=== PATIENT | female | born 1990 | race Caucasian/White ===

== ENCOUNTER 2019-05-25 10:36 | Outpatient (CLI) | payer BC, OTHER ==
[2019-05-25 11:14] VITALS: BP 124/71; PULSE 79; RESP 18; TEMP 98.3
--- NOTE | 2019-05-26 15:38 | P.MSEPDOC ---
Presenting Problems - Arrival Data Date of Arrival on Unit: 05/25/19 Time of Arrival on Unit: 10:40 Mode of Transport: Ambulatory - Complaint OB-Reason for Admission/Chief Complaint: Possible Onset of Labor Comment: admitted with groin pains and low back (sacral) area. denies bleeding or rupture or leaking of fluid Medical History - Information : 1 Para: 0 Term: 0 : 0 Abortions: Spontaneous or Elective: 0 Number of Living Children: 0 - Gestational Age Gestational Age by JUN (wks/days): 38 Weeks and 5 Days Review of Systems - Review of Systems Constitutional: No problems Breast: No problems ENT: No problems Cardiovascular: No problems Respiratory: No problems Gastrointestinal: No problems Genitourinary: No problems Musculoskeletal: No problems Neurological: No problems Skin: No problems Vital Signs - Temperature Temperature: 98.3 F Temperature Source: Oral - Pulse Right Brachial Pulse Rate: 79 Pulse Assessment Method: Automatic Cuff - Respirations Respiratory Rate: 18 Oxygen Delivery Method: Room Air O2 Sat by Pulse Oximetry: 97 - Blood Pressure Right Arm Blood Pressure: 124/71 Blood Pressure Mean: 88 Blood Pressure Source: Automatic Cuff Medical Screen Scoring (Pre) - Cervical Exam Dilation: 1-3 cm = 1 Effacement: More than 50% = 2 Membranes: Intact - Uterine Contractions Frequency: N/A Duration: N/A Intensity: N/A - Maternal Vital Signs Maternal Temperature: N/A Maternal Blood Pressure: N/A Signs of Preeclampsia: N/A Maternal Respirations: N/A - Maternal Trauma Maternal Trauma: N/A - Assessment - Baby A Baseline FHR: 125 Heart Rate - NICHD Category: Category I (Normal) = 0 NST: Reactive Position: N/A - Total Score - Baby A Total Score - Baby A: 3 - Total Score - Baby B Total Score - Baby B: 3 - Total Score - Baby C Total Score - Baby C: 3 - Level of Risk - Baby A Level of Risk - Baby A: Low (0-5) - Level of Risk - Baby B Level of Risk - Baby B: Low (0-5) - Level of Risk - Baby C Level of Risk - Baby C: Low (0-5) Physician Notification (Pre) - Physician Notified Physician Notified Date: 05/25/19 Physician Notified Time: 11:25 Spoke With: demetrio New Order Received: Yes - Notification Comment Comment: discharge. increase fluid intake. keep 05/28 appt as scheduled Disposition - Disposition OB Disposition: Discharge to home Discharge Date: 05/25/19 Discharge Time: 11:35 I agree with the RN Medical Screening Exam: Yes Risk & Benefit of care provided described in d/c instruction: Yes Diagnosis: FALSE LABOR AT OR AFTER 37 COMPLETED WEEKS OF GESTATION
== END 2019-05-25 11:35 | disposition home or self-care (01) ==
LOC: FBPOP 10:36
PROVIDERS: ATTEND Obstetrics & Gynecology
DX: O47.1 False labor at or after 37 completed weeks of gestation (principal); Z3A.38 38 weeks gestation of pregnancy
CPT/HCPCS: 59025; 99213

== ENCOUNTER 2019-05-26 09:41 | Outpatient (CLI) | payer BC, OTHER ==
[2019-05-26 17:14] VITALS: BP 134/84; PULSE 88; RESP 18; TEMP 98.5
--- NOTE | 2019-05-28 04:58 | P.MSEPDOC ---
Presenting Problems - Arrival Data Date of Arrival on Unit: 05/26/19 Time of Arrival on Unit: 09:20 Mode of Transport: Ambulatory - Complaint OB-Reason for Admission/Chief Complaint: Possible Onset of Labor Medical History - Information : 1 Para: 0 Term: 0 : 0 Abortions: Spontaneous or Elective: 0 Number of Living Children: 0 - Gestational Age Gestational Age by JUN (wks/days): 38 Weeks and 6 Days Review of Systems - Review of Systems Constitutional: No problems Breast: No problems ENT: No problems Cardiovascular: No problems Respiratory: No problems Gastrointestinal: No problems Genitourinary: No problems Musculoskeletal: No problems Neurological: No problems Skin: No problems Vital Signs - Temperature Temperature: 98.5 F Temperature Source: Oral - Pulse Right Brachial Pulse Rate: 88 Pulse Assessment Method: Automatic Cuff - Respirations Respiratory Rate: 18 Oxygen Delivery Method: Room Air O2 Sat by Pulse Oximetry: 97 - Blood Pressure Right Arm Blood Pressure: 134/84 Blood Pressure Mean: 100 Blood Pressure Source: Automatic Cuff Medical Screen Scoring (Pre) - Cervical Exam Dilation: 1-3 cm = 1 Membranes: Intact - Uterine Contractions Frequency: N/A Duration: N/A Intensity: N/A - Maternal Vital Signs Maternal Temperature: N/A Maternal Blood Pressure: N/A Signs of Preeclampsia: N/A Maternal Respirations: N/A - Maternal Trauma Maternal Trauma: N/A - Assessment - Baby A Baseline FHR: 120 Heart Rate - NICHD Category: Category I (Normal) = 0 NST: Reactive Position: N/A Station: N/A - Total Score - Baby A Total Score - Baby A: 1 - Total Score - Baby B Total Score - Baby B: 1 - Total Score - Baby C Total Score - Baby C: 1 - Level of Risk - Baby A Level of Risk - Baby A: Low (0-5) - Level of Risk - Baby B Level of Risk - Baby B: Low (0-5) - Level of Risk - Baby C Level of Risk - Baby C: Low (0-5) Physician Notification (Pre) - Physician Notified Spoke With: demetrio New Order Received: Yes - Notification Comment Comment: report given of no chnage in cervix. to send home. to keep appt as sched on . Medical Screen Scoring (Post) - Cervical Exam Dilation: 1-3 cm = 1 Membranes: Intact - Uterine Contractions Frequency: N/A Duration: N/A Intensity: N/A - Maternal Vital Signs Maternal Temperature: N/A Maternal Blood Pressure: N/A Signs of Preeclampsia: N/A Maternal Respirations: N/A - Pain Assessment Pain Scale Used: Numeric (1 - 10) Pain Intensity: 5 - Maternal Trauma Maternal Trauma: N/A - Assessment - Baby A Heart Rate: 125 Heart Rate - NICHD Category: Category I (Normal) = 0 NST: Reactive Position: N/A Station: N/A - Total Score Total Score - Baby A: 1 Total Score - Baby B: 1 Total Score - Baby C: 1 - Post Treatment Level of Risk Post Treatment Level of Risk - Baby A: Low (0-5) Post Treatment Level of Risk - Baby B: N/A Post Treatment Level of Risk - Baby C: N/A Physician Notification (Post) - Physician Notified Physician Notified Date: 05/26/19 Physician Notified Time: 11:25 Spoke With: demetrio Chawla Order Received: Yes - Notification Comment Comment: discharge home. to keep sched appt on this week Disposition - Disposition OB Disposition: Observe, Discharge to home Discharge Date: 05/26/19 Discharge Time: 11:25 I agree with the RN Medical Screening Exam: Yes Risk & Benefit of care provided described in d/c instruction: Yes Diagnosis: FALSE LABOR AT OR AFTER 37 COMPLETED WEEKS OF GESTATION
== END 2019-05-26 11:25 | disposition home or self-care (01) ==
LOC: FBPOP 09:41
PROVIDERS: ATTEND Obstetrics & Gynecology
DX: O47.1 False labor at or after 37 completed weeks of gestation (principal); Z3A.38 38 weeks gestation of pregnancy
CPT/HCPCS: 59025; 99213

== ENCOUNTER 2019-05-26 21:30 | Inpatient (IN) | payer BC, OTHER ==
[2019-05-26] MEDS ORDERED: TERBUTALINE 1 MG/ML VIAL SQ PRN (21:50)
[2019-05-26] MEDS ORDERED: METHYLERGONOVINE 0.2 MG/ML 1 ML AMP IM PRN (21:50)
[2019-05-26] MEDS ORDERED: LIDOCAINE 0.5% (PF) 5 MG/ML (50 ML SDV) SQ PRN (21:50)
[2019-05-26] MEDS ORDERED: OXYTOCIN 10 UNIT/ML 1 ML VIAL IM PRN (21:50)
[2019-05-26] MEDS ORDERED: CARBOPROST TROMETHAMINE 250 MCG/ML 1 ML AMP IM PRN (21:50)
[2019-05-26] MEDS ORDERED: BUTORPHANOL 1 MG/ML 1 ML VIAL IV PRN (21:52)
[2019-05-26] MEDS ORDERED: OXYTOCIN 30 UNITS/500 ML NS 30 UNIT in SALINE 1 500ML.BAG IV SCH (22:00)
[2019-05-26] MEDS: LACTATED RINGERS 1,000 ML IV SCH ×3 (22:10→23:13)
[2019-05-26] MEDS ORDERED: ROPIVACAINE 5MG/ML 20ML VIAL ONE (22:45)
[2019-05-26] MEDS ORDERED: SODIUM CHLORIDE 0.9% 100 ML BAG ONE (22:45)
[2019-05-26] MEDS ORDERED: fentaNYL (PF) 50 MCG/ML 5 ML AMP ONE (22:45)
[2019-05-26 22:48] LABS: Basophils % (A) 0 %; Eosinophils % (A) 0 %; Lymphocytes # (A) 0.8 k/uL (1.0-4.8); Lymphocytes % (A) 4 %; MCH 31.4 pg (25.0-35.0); MCHC 34.2 g/dL (31.0-37.0); Mean Platelet Volume 7.5; Monocytes # (A) 0.8 k/uL (0-1.0); Monocytes % (A) 4 %; Neutrophils # (A) 18.9 k/uL (1.3-7.7); Neutrophils % (A) 92 %; Platelet Count 241 k/uL (150-450); RBC 4.13 m/uL (3.80-5.40); RDW 13.5 % (11.5-15.5); WBC 20.6 k/uL (3.8-10.6)
[2019-05-26 23:37] VITALS: BMI 33.5
[2019-05-27] MEDS: LACTATED RINGERS 1,000 ML IV SCH (07:12)
--- NOTE | 2019-05-27 07:42 | P.HPOB ---
History of Present Illness H&P Date: 05/27/19 This is a 28-year-old white female 1 para 0 EDC 06/03/2019 at 39 weeks gestation. Patient presented last night in early spontaneous labor. She denied fluid leakage. Fetus is been active throughout the . Past medical history is significant for hypothyroidism. Past surgical history right knee arthroscopy, tonsillectomy. Current medications vitamins daily. ALLERGIES none known. Family history significant for melanoma, diabetes, hypertension. Social history patient is single, she is a former tobacco smoker one half pack per day, she denies alcohol or drug use during the . history blood type B positive, rubella status immune. Gonorrhea and ch lamydia cultures, group B strep cultures, VDRL testing, hepatitis B surface antigen, HIV testing all negative. One-hour Glucola 102. On exam this is a pleasant white female who is 5 foot 3 inches, 190 pounds, vital signs are stable and she is afebrile. The general physical exam is within normal limits. Cervix is 8 cm dilated, 90% effaced, -1 station, vertex presentation. Artificial amniorrhexis reveals clear fluid. heart rate is consistent with reactive NST. Impression: 39 week intrauterine , spontaneous active labor. All signs reassuring. Plan: Continue close maternal and surveillance. Contractions are approximately every 6 minutes apart, epidural has been placed. Oxytocin augmentation will be started at this time and titrated as needed. Anticipate normal spontaneous vaginal delivery. Review of Systems Constitutional: Reports as per HPI Past Medical History Past Medical History: Thyroid Disorder History of Any Multi-Drug Resistant Organisms: None Reported Past Surgical History: Orthopedic Surgery Past Anesthesia/Blood Transfusion Reactions: No Reported Reaction Past Psychological History: No Psychological Hx Reported Smoking Status: Never smoker Past Alcohol Use History: None Reported Past Drug Use History: None Reported - Past Family History Mother Family Medical History: No Reported History Medications and Allergies Home Medications Medication Instructions Recorded Confirmed Type Pnv,Calcium 72/Iron/Folic Acid 1 each PO DAILY 05/25/19 05/26/19 History [ Plus Tablet] Allergies Allergy/AdvReac Type Severity Reaction Status Date / Time No Known Allergies Allergy Verified 05/26/19 21:37 Exam Vital Signs Temp Pulse Resp BP Pulse Ox 05/26/19 21:38 98.7 F 92 16 139/79 96 Intake and Output 05/26/19 05/27/19 05/27/19 22:59 06:59 14:59 Other: Weight 85.729 kg See dictation under HPI please Results Result Diagrams: 05/26/19 22:09 Abnormal Lab Results - Last 24 Hours (Table) 05/26/19 Range/Units 22:09 WBC 20.6 H (3.8-10.6) k/uL Neutrophils # 18.9 H (1.3-7.7) k/uL Lymphocytes # 0.8 L (1.0-4.8) k/uL Assessment and Plan Assessment: 39 week intrauterine , active spontaneous labor. All signs reassuring. Patient comfortable with epidural. Plan: We'll begin a small amount of oxytocin augmentation. Continue close maternal and surveillance. Anticipate normal spontaneous vaginal delivery. Time with Patient: Less than 30
[2019-05-27] MEDS ORDERED: BENZOCAINE/MENTHOL SPRAY 1 GM/SPRAY AEROSOL TOPICAL PRN (11:48)
[2019-05-27] MEDS ORDERED: diphenhydrAMINE 50 MG/ML 1 ML VIAL IVP PRN ×2 (11:48)
[2019-05-27] MEDS ORDERED: HYDROCORTISONE 2.5% RECTAL CREAM 30 GM TUBE RECTAL PRN (11:48)
[2019-05-27] MEDS ORDERED: diphenhydrAMINE 50 MG CAP PO PRN (11:48)
[2019-05-27] MEDS ORDERED: ACETAMINOPHEN TAB 325 MG TAB PO PRN (11:48)
[2019-05-27] MEDS ORDERED: WITCH HAZEL 1 EACH MED..PAD TOPICAL PRN (11:48)
[2019-05-27] MEDS ORDERED: diphenhydrAMINE 25 MG CAP PO PRN (11:48)
[2019-05-27] MEDS ORDERED: diphenhydrAMINE ELIXIR 25 MG/10 ML CUP PO PRN (11:48)
[2019-05-27] MEDS ORDERED: SIMETHICONE 80 MG CHEWABLE PO PRN (11:48)
[2019-05-27] MEDS ORDERED: LANOLIN CREAM 5 GM TUBE TOPICAL PRN (11:48)
[2019-05-27] MEDS ORDERED: ZOLPIDEM 5 MG TAB PO PRN (11:48)
--- NOTE | 2019-05-27 11:48 | P.PROBDLV ---
Vaginal Delivery Note - . Vaginal Delivery Note: This is a 28 -year-old white female 1 para 0 EDC 06/03/2019 at 39 weeks gestation. Patient presented in early spontaneous labor. Her is remarkable for rubella status immune, blood type B positive, group B strep cultures negative. Please see dictated history and physical for details. Artificial amniorrhexis revealed clear fluid. Oxytocin was started and titrated per augmentation protocol. Epidural was placed per patient's request. She progressed well through the first stage of labor and was judged to be complete at 1035 hrs. Patient pushed well in the dorsal lithotomy position. Toward the end of the second stage decelerations were noted. Excellent maternal expulsive efforts weren't also appreciated. 's head delivered occiput anterior and restituted accordingly. There was no nuchal cord noted. The right or anterior shoulder was delivered from underneath the pubic symphysis at which time the oropharynx, nasopharynx, and external nares were all bulb suctioned. Patient officially delivered a liveborn male at 1133 hours. Umbilical cord was doubly clamped and ligated, he was handed to waiting nurses for evaluation where scores of 7 and 8 at one and 5 minutes respectively were given. Infant weighed 2785 g or 6 lbs. 2 oz. The placenta delivered spontaneously, it was inspected and noted to be intact with trivascular cord at 1138 hours. At this time the uterus is massaged. Thorough inspection of the cervix, vagina, perineum, periurethral, and perirectal areas revealed a small first-degree midline laceration. This was repaired in the usual fashion using 3-0 Vicryl suture. All sponge needle and enhancement counts are correct at the end of the procedure. Estimated blood loss 250 mL's. Patient is requesting circumcision for her infant son.
[2019-05-27] MEDS ORDERED: OXYTOCIN 20 UNITS/1000 ML NS 1,000 ML IV SCH (12:00)
[2019-05-27] MEDS: IBUPROFEN 600 MG TAB PO PRN ×2 (12:06→22:21)
[2019-05-27] MEDS: SENNOSIDES-DOCUSATE SODIUM 1 EACH TAB PO SCH (22:21)
--- NOTE | 2019-05-28 07:11 | P.DS ---
Providers Date of admission: 05/26/19 21:57 Expected date of discharge: 05/28/19 Attending physician: Pavithra Conley Primary care physician: Stated None Hospital Course: This is a 28-year-old white female 1 para 0 EDC 06/03/2019 at 39 weeks gestation. Patient presented from home in early spontaneous labor. was remarkable for blood type B positive, rubella status immune, group B strep cultures negative. Please see my dictated history and physical for details. Artificial amniorrhexis revealed clear fluid. Epidural was placed per her request. She went on to deliver vaginally a liveborn male with scores of 7 and 8 at one and 5 minutes respectively. Infant weighed 6 lbs. 2 oz. or 2785 g. Placenta delivered spontaneously, it was inspected and noted to be intact with trivascular cord. Estimated blood loss 250 mL's. First-degree perineal laceration easily repaired. Please see dictated delivery note for details. This morning the patient is doing well. She is voiding, ambulating and passing flatus without difficulty. Vital signs are stable and she is afebrile. Fundus is firm and in the midline, symmetric and 18 week size. Extremities are negative for edema. infant is doing well, circumcision is being performed. Patient is judged to be in very good condition for discharge home. She will follow-up with me in the office in 6 weeks. I have reminded her no intercourse, tampons or douching. She will use [id number] Advil or Aleve, or Motrin as needed for pain. I've asked her to call me with any fevers shakes or chills, foul smelling or copious lochia, with the passage of large blood clots, with any pain not alleviated by [id number] products, or indeed with any concerns. We have briefly reviewed options for contraception and we will discuss this further in the office. Patient Condition at Discharge: Good Plan - Discharge Summary Discharge Rx Participant: No New Discharge Prescriptions: No Action Pnv,Calcium 72/Iron/Folic Acid [ Plus Tablet] 1 each PO DAILY Discharge Medication List Pnv,Calcium 72/Iron/Folic Acid [ Plus Tablet] 1 each PO DAILY 05/25/19 [History] Follow up Appointment(s)/Referral(s): Pavithra Conley MD [STAFF PHYSICIAN] - 6 Weeks Discharge Disposition: HOME SELF-CARE
[2019-05-28] MEDS: IBUPROFEN 600 MG TAB PO PRN ×2 (08:43→20:37)
[2019-05-29] MEDS: SENNOSIDES-DOCUSATE SODIUM 1 EACH TAB PO SCH ×3 (06:26→08:50)
[2019-05-29 08:48] VITALS: TEMP 97.5
[2019-05-29] MEDS: IBUPROFEN 600 MG TAB PO PRN (15:21)
[2019-05-29 15:27] VITALS: BP 121/73; PULSE 69; RESP 14
== END 2019-05-29 17:10 | disposition home or self-care (01) | DRG 807 ==
LOC: FBPOP 21:30 → 4FBP 21:57
PROVIDERS: ADMIT Obstetrics & Gynecology Obstetrics; ATTEND Obstetrics & Gynecology
PROC: 10E0XZZ Delivery of Products of Conception, External Approach (ICD-10-PCS; principal; 2019-05-26)
PROC: 0HQ9XZZ Repair Perineum Skin, External Approach (ICD-10-PCS; 2019-05-26)
PROC: 00HU33Z Insertion of Infusion Device into Spinal Canal, Percutaneous Approach (ICD-10-PCS; 2019-05-26)
PROC: 3E0R3BZ Introduction of Anesthetic Agent into Spinal Canal, Percutaneous Approach (ICD-10-PCS; 2019-05-26)
DX: O99.284 Endocrine, nutritional and metabolic diseases complicating childbirth (principal); Z37.0 Single live birth; E03.9 Hypothyroidism, unspecified; O70.0 First degree perineal laceration during delivery; Z3A.39 39 weeks gestation of pregnancy; Z87.891 Personal history of nicotine dependence; Z80.8 Family history of malignant neoplasm of other organs or systems; Z82.49 Family history of ischemic heart disease and other diseases of the circulatory system; Z83.3 Family history of diabetes mellitus
CPT/HCPCS: 59025; 85025; 86850; 86900; 86901; 99213